=== PATIENT | male | born 1945 | race Caucasian/White ===

== ENCOUNTER 2017-03-17 23:27 | Inpatient (IN) | payer OTHER ==
--- NOTE | 2017-03-17 23:56 | PDOC ---
History of Present Illness - General History Source: Patient, Family Exam Limitations: No Limitations - History of Present Illness Initial Comments: 03/18/17 01:04 The patient is a 71 year old male, with a significant past medical history of hypercholesterolemia, who presents to the emergency room s/p a syncopal episode at a wedding. The patient reports he was standing at the wedding when he began to feel his left leg shaking and he syncopized and fell to the floor. The patient reports the syncopal episode was witnessed and he only lost consciousness for a moment. He reports that after the syncopal episode he had some water and felt better but states he noticed his left leg was still shaky. He denies hitting his head. He denies neck or back pain. He denies recent fever , chills, nausea or vomit. He denies recent chest pain or shortness of breath. Allergies: NKA PCP: Dr. Refugio De Jesus <Omar Chakraborty - Last Filed: 03/18/17 01:45> - General History Source: Patient, Family Exam Limitations: No Limitations <Serafin Trammell - Last Filed: 03/18/17 02:04> - General Chief Complaint: Syncope/Near Syncope Stated Complaint: SYNCOPE Time Seen by Provider: 03/17/17 23:47 Past History <Omar Chakraborty - Last Filed: 03/18/17 01:45> - Suicide/Smoking/Psychosocial Hx Smoking History: Unknown if ever smoked Have you smoked in the past 12 months: No Information on smoking cessation initiated: No Hx Alcohol Use: No Drug/Substance Use Hx: No <Serafin Trammell - Last Filed: 03/18/17 02:04> - Past Medical History Allergies/Adverse Reactions: Allergies Allergy/AdvReac Type Severity Reaction Status Date / Time No Known Allergies Allergy Verified 03/18/17 01:23 Review of Systems - Review of Systems Comments:: 03/18/17 01:04 GENERAL/CONSTITUTIONAL: +Syncopal episode. No fever or chills. HEAD, EYES, EARS, NOSE AND THROAT: No change in vision. No ear pain or discharge. No sore throat. CARDIOVASCULAR: No chest pain or shortness of breath. RESPIRATORY: No cough, wheezing, or hemoptysis. GASTROINTESTINAL: No nausea, vomiting, diarrhea or constipation. GENITOURINARY: No dysuria, frequency, or change in urination. MUSCULOSKELETAL: No joint or muscle swelling or pain. No neck or back pain. SKIN: No rash NEUROLOGIC: No headache, vertigo, loss of consciousness, or change in strength/ sensation. ENDOCRINE: No increased thirst. No abnormal weight change. HEMATOLOGIC/LYMPHATIC: No anemia, easy bleeding, or history of blood clots. ALLERGIC/IMMUNOLOGIC: No hives or skin allergy. <Omar Chakraborty - Last Filed: 03/18/17 01:45> *Physical Exam - Vital Signs Last Vital Signs Temp Pulse Resp BP Pulse Ox 98.7 F 71 18 155/100 92 L 03/17/17 23:43 03/17/17 23:43 03/17/17 23:43 03/17/17 23:43 03/17/17 23:43 - Physical Exam Comments: 03/18/17 01:45 GENERAL: Awake, alert, and fully oriented, in no acute distress HEAD: No signs of trauma EYES: PERRLA, EOMI, sclera anicteric, conjunctiva clear ENT: Auricles normal inspection, hearing grossly normal, nares patent, oropharynx clear without exudates. Moist mucosa NECK: Normal ROM, supple, no lymphadenopathy, JVD, or masses LUNGS: Breath sounds equal, clear to auscultation bilaterally. No wheezes, and no crackles HEART: Regular rate and rhythm, normal S1 and S2, no murmurs, rubs or gallops ABDOMEN: Soft, nontender, normoactive bowel sounds. No guarding, no rebound. No masses EXTREMITIES: Normal range of motion, no edema. No clubbing or cyanosis. No cords, erythema, or tenderness NEUROLOGICAL: 5/5 strength in upper and lower extremities. Sensation intact throughout. Finger to nose normal. Cranial nerves II through XII intact. Normal speech, normal gait SKIN: Warm, Dry, normal turgor, no rashes or lesions noted. <Omar Chakraborty - Last Filed: 03/18/17 01:45> - Vital Signs Last Vital Signs Temp Pulse Resp BP Pulse Ox 98.7 F 71 18 155/100 92 L 03/17/17 23:43 03/17/17 23:43 03/17/17 23:43 03/17/17 23:43 03/17/17 23:43 <Serafin Trammell - Last Filed: 03/18/17 02:04> Heart Score/ECG Review #1 ECG reviewed & interpreted by me at: 23:45 03/17/17 23:56 NSR 68 with PVCs in pattern of bigemy, no std/clem, QTC 452 msec, Q wave V1, no WPW, no brugada <Serafin Trammell - Last Filed: 03/18/17 02:04> ED Treatment Course - LABORATORY CBC & Chemistry Diagram: 03/18/17 00:14 03/18/17 00:14 - ADDITIONAL ORDERS Additional order review: Laboratory Results 03/18/17 03/18/17 00:14 00:14 PT with INR 11.40 INR 1.01 PTT (Actin FS) 33.4 Sodium 142 Potassium 4.3 Chloride 106 Carbon Dioxide 28 Anion Gap 8 BUN 24 H Creatinine 0.9 Creat Clearance w eGFR > 60 Random Glucose 133 H Calcium 8.6 Phosphorus 2.9 Magnesium 2.5 H Total Bilirubin 0.5 AST 23 ALT 33 Alkaline Phosphatase 100 Creatine Kinase 77 Troponin I 0.02 Total Protein 7.8 Albumin 3.8 03/18/17 00:14 RBC 5.05 MCV 90.1 MCHC 34.0 RDW 13.1 MPV 9.0 Neutrophils % 53.3 Lymphocytes % 31.3 Monocytes % 8.3 Eosinophils % 6.3 H Basophils % 0.8 <Omar Chakraborty - Last Filed: 03/18/17 01:45> - LABORATORY CBC & Chemistry Diagram: 03/18/17 00:14 03/18/17 00:14 <Serafin Trammell - Last Filed: 03/18/17 02:04> Medical Decision Making - Medical Decision Making 03/18/17 00:25 A portion of this note was documented by scribe services under my direction. I have reviewed the details of the note, within reason, and agree with the documentation with the following case summary and management plan written by me. Patient treated in the ED. Patient arrives by ambulance to the emergency department. Nursing notes are reviewed and incorporated into the medical decision-making. Vital signs reviewed. Peripheral IV access obtained by the nurse, laboratory studies are drawn and sent, reviewed and interpreted by myself. Vital Signs Temp Pulse Resp BP Pulse Ox 98.7 F 71 18 155/100 92 L 03/17/17 23:43 03/17/17 23:43 03/17/17 23:43 03/17/17 23:43 03/17/17 23:43 71-year-old male with past medical history of hyperlipidemia presents with syncope. The patient woke up in his usual state health and was at nondenominational for a wedding. He was praying when he suddenly felt his left leg shaking and subsequently syncopized. Never endorsing chest pain, short of breath or palpitations. Denies recent illnesses, fevers, chills, cough, vomiting, diarrhea. Patient has no neurological deficits and at this time I'm not concerned for neurological etiology such as TIA or stroke. However, patient's EKG does demonstrate his bigeminy which is concerning for cardiac etiology. We'll obtain a troponin, labs and place patient on cardiac telemetry. Patient ultimately to be admitted to the hospital for further evaluation. 03/18/17 01:44 CBC, BMP 03/18/17 00:14 03/18/17 00:14 CMP Sodium 142 mmol/L (136-145) 03/18/17 00:14 Potassium 4.3 mmol/L (3.5-5.1) 03/18/17 00:14 Chloride 106 mmol/L (98-107) 03/18/17 00:14 Carbon Dioxide 28 mmol/L (21-32) 03/18/17 00:14 Anion Gap 8 (8-16) 03/18/17 00:14 BUN 24 mg/dL (7-18) H 03/18/17 00:14 Creatinine 0.9 mg/dL (0.7-1.3) 03/18/17 00:14 Creat Clearance w eGFR > 60 (>60) 03/18/17 00:14 Random Glucose 133 mg/dL (74-106) H 03/18/17 00:14 Calcium 8.6 mg/dL (8.5-10.1) 03/18/17 00:14 Phosphorus 2.9 mg/dL (2.5-4.9) 03/18/17 00:14 Magnesium 2.5 mg/dL (1.8-2.4) H 03/18/17 00:14 Total Bilirubin 0.5 mg/dL (0.2-1.0) 03/18/17 00:14 AST 23 U/L (15-37) 03/18/17 00:14 ALT 33 U/L (12-78) 03/18/17 00:14 Alkaline Phosphatase 100 U/L (45-117) 03/18/17 00:14 Creatine Kinase 77 IU/L (39-308) 03/18/17 00:14 Troponin I 0.02 ng/ml (0.00-0.05) 03/18/17 00:14 Total Protein 7.8 g/dl (6.4-8.2) 03/18/17 00:14 Albumin 3.8 g/dl (3.4-5.0) 03/18/17 00:14 Troponin neative. 03/18/17 02:[address] De Jesus who accepts the patient to telemetry admission on the behalf for Dr. Rogelio Shannon. Requestes Dr. Godwin for cardiology consultation. Case discussed in detail with admitting physician including history, physical exam and ancillary studies. Admitting physician has assumed care for the patient, will follow all pending diagnostics and will complete the evaluation and treatment. <Serafin Trammell - Last Filed: 03/18/17 02:04> *DC/Admit/Observation/Transfer - Attestations Scribe Attestion: 03/18/17 01:05 Documentation prepared by Omar Chakraborty, acting as medical office assistant for Serafin Trammell MD. <Omar Chakraborty - Last Filed: 03/18/17 01:45> - Discharge Dispostion Admit: Yes <Serafin Trammell - Last Filed: 03/18/17 02:04> Diagnosis at time of Disposition: Abnormal EKG Syncope Qualifiers: Syncope type: unspecified Qualified Code(s): R55 - Syncope and collapse - Discharge Dispostion Condition at time of disposition: Stable - Referrals Referrals: Refugio De Jesus MD [Primary Care Provider] -
[2017-03-18 00:27] LABS: BASOPHIL 0.8 % (0-2.0); EOSINOPHIL 6.3 % (0-4.5); MCH 30.6 pg (25.7-33.7); MEAN CELL VOLUME 90.1 fl (80-96); NEUTROPHILS 53.3 % (42.8-82.8); PLATELET COUNT 159 K/MM3 (134-434); RDW 13.1 % (11.9-15.9); WHITE BLOOD COUNT 8.6 K/mm3 (4.0-10.0)
[2017-03-18 00:41] LABS: INR 1.01 (0.82-1.09); PROTHROMBIN TIME (PATIENT) 11.4 SEC (9.98-11.88)
[2017-03-18 00:44] LABS: ACTIVATED PTT 33.4 SECONDS (26.9-34.4)
[2017-03-18 00:50] LABS: ALBUMIN 3.8 g/dl (3.4-5.0); ANION GAP 8 (8-16); BILIRUBIN,TOTAL 0.5 mg/dL (0.2-1.0); CALCIUM 8.6 mg/dL (8.5-10.1); CO2 28 mmol/L (21-32); CPK 77 IU/L (39-308); CREATININE 0.9 mg/dL (0.7-1.3); GLUCOSE,RANDOM 133 mg/dL (74-106); MAGNESIUM 2.5 mg/dL (1.8-2.4); PHOSPHOROUS 2.9 mg/dL (2.5-4.9); SGOT/AST 23 U/L (15-37); SGPT/ALT 33 U/L (12-78); TOT PROT 7.8 g/dl (6.4-8.2)
[2017-03-18 00:52] LABS: ALK PHOS 100 U/L (45-117); TROPONIN I 0.02 ng/ml (0.00-0.05)
--- NOTE | 2017-03-18 08:00 | CON.CARD ---
Consult Consult Specialty:: cardio Referred by:: cindy (for esperanza) Reason for Consultation:: syncope - History of Present Illness Chief Complaint: same History of Present Illness: 71 yo male presented with syncope. flew from [place] (8 hrs) on 03/12 evening. has been feeling fine, at [employer] which is excellent--climbs multiple flights of stairs and walks ad dwayne never with any cp, sob, palpitations, dizzy/syncope. was at a wedding on [place]. had eaten lightly throughout the am and afternoon and not much fluids, but felt normal. at wedding he had very small amt (much less than 1/2 glass) of wine, ate large amt there. started noticing L leg trembling/shaking--went to try to lift the leg and passed out. no numbness in the leg, no neuro sx's in any other part of body. denies palpitations, cp, sob. no feeling of hot/cold wave or upset stomach at all. says he dropped to the floor and immediately (few seconds later) regained consciousness--no sz movements other than that leg shaking. no confusion post event. no vomiting/diarrhea/loss of bowel continence. THE LEG CONTINUED SHAKING FOR APPROX 1 HOUR. denies pains in calf/leg or swelling, or prior h/o VTEs. ekg with ventric bigeminy noted in ER PMH: HPL denies DM, HTN, CAD (had stress test in [place] 2 yrs ago or so, normal) FH: sudden in brother at 46 while asleep - Alcohol/Substance Use Hx Alcohol Use: No - Smoking History Smoking history: Unknown if ever smoked Have you smoked in the past 12 months: No Home Medications - Allergies Allergies/Adverse Reactions: Allergies Allergy/AdvReac Type Severity Reaction Status Date / Time No Known Allergies Allergy Verified 03/18/17 01:23 - Home Medications Home Medications: Ambulatory Orders Aspirin [ASA -] 81 mg PO DAILY 03/18/17 Rosuvastatin Calcium [Crestor] 5 mg PO HS 03/18/17 Review of Systems - Review of Systems Constitutional: denies: Chills, Fever Eyes: denies: Eye Pain HENT: denies: Nasal Congestion Neck: denies: Stiffness Cardiovascular: denies: Palpitations Respiratory: denies: Orthopnea, PND Gastrointestinal: denies: Diarrhea, Rectal Bleeding Genitourinary: denies: Burning, Hematuria Musculoskeletal: denies: Muscle Pain Integumentary: denies: Rash Neurological: denies: Change in Speech, Numbness, Parasthesia Endocrine: denies: Excessive Sweating Hematology/Lymphatic: denies: Excessive Bleeding Vital Signs: Vital Signs Temperature 98.7 F 03/18/17 06:25 Pulse Rate 72 03/18/17 06:25 Respiratory Rate 17 03/18/17 06:25 Blood Pressure 138/78 03/18/17 06:25 O2 Sat by Pulse Oximetry (%) 98 03/18/17 06:25 Constitutional: Yes: Well Nourished, No Distress Eyes: No: Sclera Icterus HENT: No: Nasal Congestion Neck: No: Decreased ROM Respiratory: Yes: CTA Bilaterally, Rales (faint rales/faint wz bases), Wheezes. No: Accessory Muscle Use Gastrointestinal: Yes: Normal Bowel Sounds. No: Distention, Hepatomegaly, Palpable Mass, Tenderness Cardiovascular: Yes: Regular Rate and Rhythm JVD: Yes Carotid Bruit: No PMI: Non-Displaced Heart Sounds: Yes: S1, S2. No: Gallop Murmur: No: Systolic Murmur, Diastolic Murmur Musculoskeletal: Yes: Other (No kyphosis) Extremities: Yes: Other (no induration/cord/tenderness of calves). No: Cold, Cyanosis Edema: No Peripheral Pulses: 2+ Left Carotid, 2+ Right Carotid, 2+ Left Doralis Pedis, 2+ Right Dorsalis Pedis Integumentary: No: Jaundice Neurological: Yes: Alert, Oriented (x3) Psychiatric: No: Agitated - Other Data Labs, Other Data: INR, PTT INR 1.01 (0.82-1.09) 03/18/17 00:14 Laboratory Tests 03/18/17 03/18/17 00:14 00:14 WBC 8.6 Hgb 15.5 Plt Count 159 Sodium 142 Potassium 4.3 Carbon Dioxide 28 BUN 24 H Creatinine 0.9 AST 23 ALT 33 Troponin I 0.02 Assessment/Plan EKG--NSR, ventricular bigeminy (monomorphic); normal axis; ? old ASMI (no prior) ; QT prob normal (difficult to measure in bigeimny--appears normal, 400s); no ST -T abns; no Brugada findings or findings suggestive of ARVD PVCs have left bundle/inferior axis morphology tele: NSR with freq monomorphic PVCs and freq runs of VT 3-4b duration CXR--congestive changes, cannot exclude early infiltrate; images reviewed: no effusions or vascular engorgement/redistribution; incr markings bases c/w nonspecific interstitial finding syncope: -suspicious type sx's with no prodrome other than brief shaking of LLE which persisted for about an hour after regained consciousness -? sz vs CVA -marked JVD on exam (8-10cm) with ? mild interstitial edema on CXR in pt with no prior h/o chf sx's or cv dz--? acute event with RV strain; frequency pvc's/ NSVT emanating from RV (negative QRS in V1) -check CTA to r/o PE with atyp presentation (flew 8 hrs flight 4 days prior to event) -check echo in AM -trop x1 normal, second ordered (pending) chf: -cxr nonspecific incr interstitial markings at bases on my review, ? interstitial edema (acute) -signif JVD on exam, as above -soft heart sounds with soft murmur--r/o signif -check bnp -check echo -defer lasix as he is asymptomatic VTach: -freq PVCs with morphology c/w RVOT/LVOT site of origin -suspicious syncope, as above -K and Mag good, no prolonged QT on ekg, no other findings of channelopathy/ cardiomyopathy -presentation (sudden syncope with minimal prodrome) not typical of outflow tract VT -r/o PE with RV strain (CTA)...no RBBB or epsilon wave findings to suggest ARVD -check echo -if echo with normal LV and RV, will d/w EP re: cath (vs inpt mpi), ? EPS (vs outpt monitor)
--- NOTE | 2017-03-18 09:05 | EKG ---
Test Reason : Blood Pressure : / mmHG Vent. Rate : 068 BPM Atrial Rate : 068 BPM P-R Int : 160 ms QRS Dur : 082 ms QT Int : 426 ms P-R-T Axes : 021 054 078 degrees QTc Int : 452 ms SINUS RHYTHM WITH FREQUENT PREMATURE VENTRICULAR COMPLEXES IN A PATTERN OF BIGEMINY ANTERIOR INFARCT , AGE UNDETERMINED ABNORMAL ECG NO PREVIOUS ECGS AVAILABLE Confirmed by BYRON PARRISH, KYLAH ([id number]) on 03/18/2017 9:05:41 AM Referred By: Confirmed By:KYLAH MATTHEWS MD
[2017-03-18] MEDS ORDERED: ACETAMINOPHEN 325 MG TABLET (FP) PO PRN (10:35)
[2017-03-18 10:38] LABS: TROPONIN I 0.02 ng/ml (0.00-0.05)
[2017-03-18] MEDS ORDERED: ENOXAPARIN NA (PORCINE) 40 MG/0.4 ML DISP.SYRIN SQ ONE (11:15)
[2017-03-18] MEDS ORDERED: ASPIRIN COATED 81 MG TABLET.EC ONE (11:15)
[2017-03-18] MEDS: ASPIRIN 81 MG CHEWABLE TABLETS PO SCH (11:20)
[2017-03-18] MEDS: ENOXAPARIN NA (PORCINE) 40 MG/0.4 ML DISP.SYRIN SQ SCH (11:20)
[2017-03-18 14:48] VITALS: BMI 25.5
--- NOTE | 2017-03-18 15:41 | HP ---
Admitting History and Physical - Primary Care Physician PCP: Refugio De Jesus - Admission History of Present Illness: The patient is a 71 year old male, with a significant past medical history of hypercholesterolemia, who presents to the emergency room s/p a syncopal episode at a wedding. The patient reports he was standing at the wedding when he began to feel his left leg shaking and he syncopized and fell to the floor. The patient reports the syncopal episode was witnessed and he only lost consciousness for a moment. He reports that after the syncopal episode he had some water and felt better but states he noticed his left leg was still shaky. He denies hitting his head. He denies neck or back pain. He denies recent fever , chills, nausea or vomit. He denies recent chest pain or shortness of breath. pt being admitted to tele as ekg-- showed pvcs pt seen/ examined by me in er- chart reviewed family at bedside. at present comfortable denies cp/sob. no abd pain. no headche/ dizziness denies u/b trouble History Source: Patient, Family Member Limitations to Obtaining History: No Limitations - Smoking History Smoking history: Unknown if ever smoked Have you smoked in the past 12 months: No - Alcohol/Substance Use Hx Alcohol Use: No Home Medications - Allergies Allergies/Adverse Reactions: Allergies Allergy/AdvReac Type Severity Reaction Status Date / Time No Known Allergies Allergy Verified 03/18/17 01:23 - Home Medications Home Medications: Ambulatory Orders Aspirin [ASA -] 81 mg PO DAILY 03/18/17 Rosuvastatin Calcium [Crestor] 5 mg PO HS 03/18/17 Review of Systems Findings/Remarks: see [place] Physical Examination Vital Signs: Vital Signs Temperature 98.7 F 03/18/17 06:25 Pulse Rate 82 03/18/17 14:15 Respiratory Rate 18 03/18/17 14:15 Blood Pressure 121/82 03/18/17 14:15 O2 Sat by Pulse Oximetry (%) 92 L 03/18/17 14:15 Constitutional: Yes: No Distress, Calm Eyes: Yes: WNL HENT: Yes: WNL Neck: Yes: Supple, Trachea Midline Cardiovascular: Yes: Regular Rate and Rhythm Respiratory: Yes: CTA Bilaterally Gastrointestinal: Yes: Normal Bowel Sounds, Soft Edema: No Neurological: Yes: WNL, Alert, Cran Nerves II-XII Intact Psychiatric: Yes: Alert Imaging - Results Chest X-ray: Report Reviewed Cat Scan: Report Reviewed EKG: Report Reviewed Problem List - Problems (1) Syncope Assessment/Plan: monitor on tele neuro eval carotid ok Code(s): R55 - SYNCOPE AND COLLAPSE Qualifiers: Syncope type: unspecified Qualified Code(s): R55 - Syncope and collapse ; R55 - Syncope and collapse (2) Abnormal EKG Assessment/Plan: monitor tele. cardiology on case. Code(s): R94.31 - ABNORMAL ELECTROCARDIOGRAM [ECG] [EKG] (3) Hyperlipemia Code(s): E78.5 - HYPERLIPIDEMIA, UNSPECIFIED Assessment/Plan dvt prophylaxis discussed with pt/ family, will follow.
[2017-03-18] MEDS ORDERED: ROSUVASTATIN CA 5 MG TABLET (FP) PO SCH (22:00)
[2017-03-19 06:59] LABS: BASOPHIL 0.5 % (0-2.0); EOSINOPHIL 6.7 % (0-4.5); MCH 30.6 pg (25.7-33.7); MEAN CELL VOLUME 90.1 fl (80-96); MEAN PLT VOLUME 9.4 fl (7.5-11.1); NEUTROPHILS 42.1 % (42.8-82.8); PLATELET COUNT 148 K/MM3 (134-434); RDW 13.2 % (11.9-15.9); WHITE BLOOD COUNT 7.8 K/mm3 (4.0-10.0)
[2017-03-19 07:13] LABS: ALBUMIN 3.6 g/dl (3.4-5.0); ALK PHOS 93 U/L (45-117); ANION GAP 7 (8-16); BILIRUBIN,TOTAL 1.2 mg/dL (0.2-1.0); CALCIUM 8.5 mg/dL (8.5-10.1); CHOLESTEROL 137 mg/dL (50-200); CO2 27 mmol/L (21-32); CREATININE 0.9 mg/dL (0.7-1.3); GLUCOSE,RANDOM 101 mg/dL (74-106); SGOT/AST 21 U/L (15-37); SGPT/ALT 23 U/L (12-78); TOT PROT 7.2 g/dl (6.4-8.2)
[2017-03-19] MEDS ORDERED: PT OWN MED DRAWER 7, Y5N ONE (09:24)
[2017-03-19] MEDS: ENOXAPARIN NA (PORCINE) 40 MG/0.4 ML DISP.SYRIN SQ SCH (09:33)
[2017-03-19] MEDS: ASPIRIN 81 MG CHEWABLE TABLETS PO SCH (09:33)
--- NOTE | 2017-03-19 11:43 | PN ---
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 his LLE was shaking uncontrollably; he lifted the leg to try to shake it out and stop it. then he put it back down and when he tried to lift the R leg and support himself fully on the left leg, he fell to floor no dizzy, cp, sob, palp +cigs - Current Medication List Current Medications: Active Medications Acetaminophen (Tylenol -) 650 mg PO Q6H PRN PRN Reason: FEVER OR PAIN Aspirin (Asa -) 81 mg PO DAILY [facility] Last Admin: 03/19/17 09:33 Dose: 81 mg Enoxaparin Sodium (Lovenox -) 40 mg SQ DAILY [facility] Last Admin: 03/19/17 09:33 Dose: 40 mg Rosuvastatin Calcium (Crestor -) 5 mg PO HS [facility] Last Admin: 03/18/17 23:45 Dose: 5 mg - Objective Vital Signs: Vital Signs Temperature 97.8 F 03/19/17 02:00 Pulse Rate 60 03/19/17 02:00 Respiratory Rate 18 03/19/17 02:00 Blood Pressure 129/56 03/19/17 02:00 O2 Sat by Pulse Oximetry (%) 95 03/18/17 21:00 Constitutional: Yes: No Distress, Calm Eyes: No: Sclera Icterus HENT: No: Nasal Congestion Cardiovascular: Yes: Regular Rate and Rhythm, JVD (10 cm), S1, S2, Other (PMI non diplaced). No: Gallop, Murmur Respiratory: Yes: CTA Bilaterally. No: Accessory Muscle Use, Rales, Wheezes Gastrointestinal: Yes: Normal Bowel Sounds, Soft. No: Tenderness Musculoskeletal: Yes: Other (No kyphosis) Extremities: No: Cold Edema: No Integumentary: No: Jaundice Neurological: Yes: Alert, Oriented (x3) Psychiatric: No: Agitated Labs: CBC, BMP 03/19/17 06:10 03/19/17 06:10 INR, PTT INR 1.01 (0.82-1.09) 03/18/17 00:14 - ....Imaging EKG: Other (tele: NSR; freq PVCs; few runs NSVT (3 b)) Assessment/Plan EKG--NSR, ventricular bigeminy (monomorphic); normal axis; ? old ASMI (no prior) ; QT prob normal (difficult to measure in bigeimny--appears normal, 400s); no ST -T abns; no Brugada findings or findings suggestive of ARVD PVCs have left bundle/inferior axis morphology tele: NSR with freq monomorphic PVCs and freq runs of VT 3-4b duration CXR--congestive changes, cannot exclude early infiltrate; images reviewed: no effusions or vascular engorgement/redistribution; incr markings bases c/w nonspecific interstitial finding NOTE: SEE HPI--THERE WAS NO H/O PRESYNCOPE OR SYNCOPE (PT AND CLARIFY HX TODAY) LLE tremoring (x 1 hr) and weakness with resultant mechanical fall: -? sz vs CVA--await neuro eval -CT head no acute path -marked JVD on exam (8-10cm)--CTA neg for PE; echo pending -trop x 2 neg--sx's not c/w ACS -carotids no stenosis (mild plaque) chf, unknown type: -cxr nonspecific incr interstitial markings at bases on my review, ? interstitial edema (acute) -signif JVD on exam -BNP 600s (+/-) -no sx's -soft heart sounds with soft murmur--r/o signif -check bnp -check echo -defer lasix as he is asymptomatic VTach: -freq PVCs with morphology c/w RVOT/LVOT site of origin -NO SX'S (hx clarified with pt/)--was mechanical fall -K and Mag good, no prolonged QT on ekg, no other findings of channelopathy/ cardiomyopathy -check echo -if echo with normal LV and RV, then this pt is ASYMPTOMATIC and would not have indication for possible VT ablation unless develops sx's (or sustained ventric arrhythmia) in future -will start BB here (also to minimize PVC burden and future risk of pvc-assctd cmp) renal cyst: -R upper pole cyst ? partially exophytic -f/u per pmd
--- NOTE | 2017-03-19 12:26 | CON.NEURO ---
Consult - History of Present Illness History of Present Illness: 71 year old male , history of HLD, came to hospital for possible syncope.Patient was in wedding, drove long hours and was standing and felt some funny thing in left leg and possible shakiness, and fell to floor. There was no shaking activity, no tongue bite or incontinence. He denies any headhace, dysphagia , dysarthria or diplopia. Patient was no post ictal. CT scan of head was normal and carotid ultrasound is normal denies any stroke seizures in past,He denies any smoking in past - Alcohol/Substance Use Hx Alcohol Use: No - Smoking History Smoking history: Unknown if ever smoked Have you smoked in the past 12 months: No Aproximately how many cigarettes per day: 15 Home Medications - Allergies Allergies/Adverse Reactions: Allergies Allergy/AdvReac Type Severity Reaction Status Date / Time No Known Allergies Allergy Verified 03/18/17 01:23 - Home Medications Home Medications: Ambulatory Orders Aspirin [ASA -] 81 mg PO DAILY 03/18/17 Rosuvastatin Calcium [Crestor] 5 mg PO HS 03/18/17 Physical Exam-Neuro Vital Signs: Vital Signs Temperature 98.2 F 03/19/17 10:00 Pulse Rate 60 03/19/17 10:00 Respiratory Rate 22 03/19/17 10:00 Blood Pressure 152/74 03/19/17 10:00 O2 Sat by Pulse Oximetry (%) 96 03/19/17 09:00 Labs: CBC, BMP 03/19/17 06:10 03/19/17 06:10 INR, PTT INR 1.01 (0.82-1.09) 03/18/17 00:14 Imaging - Results Cat Scan: Report Reviewed Assessment/Plan cc Episode of syncope HPI 71 year old male , history of HLD, came to hospital for possible syncope.Patient was in wedding, drove long hours and was standing and felt some funny thing in left leg and possible shakiness, and fell to floor. There was no shaking activity, no tongue bite or incontinence. He denies any headhace, dysphagia , dysarthria or diplopia. Patient was no post ictal. CT scan of head was normal and carotid ultrasound is normal denies any stroke seizures in past,He denies any smoking in past Home Medication Aspirin [ASA -] 81 mg PO DAILY 10/29/17 Rosuvastatin Calcium [Crestor] 5 mg PO HS 03/18/17 ROS reviewed in chart Neurological Examination Alert oriented x 3 CN all intact, eomi, pupils is reactive no face asymmetry motor 5/5 all extremity sensation is normal gait and coordination is normal ct head is unremarkable carotid ultraosound no stenosis Assessment- Most likley syncope, unlikely to be seizures. Plan so far work up has been negative, no need for mri at this time, eeg can be done as outpatient He was given my no and would see him outpatient He is clear to go home from neurological point of view Thank you so much Shirley Black MD
[2017-03-19] MEDS ORDERED: METOPROLOL SUCCINATE 50 MG TAB.SR.24H (FP) PO SCH (12:30)
--- NOTE | 2017-03-19 14:28 | PN ---
Progress Note (short form) - Note Progress Note: patient seen and examined earlier this morning today Feels much better No complaints Denies chest pain or shortness of breath or abdominal pain Denies headache or dizziness Vital Signs Temp 98.2 F 03/19/17 10:00 Pulse 60 03/19/17 10:00 Resp 22 03/19/17 10:00 BP 152/74 03/19/17 10:00 Pulse Ox 96 03/19/17 09:00 Intake & Output 03/18/17 03/19/17 03/19/17 23:59 11:59 23:59 Intake Total 10 300 Balance 10 300 Weight 168 lb Intake: IVPB 10 Oral 300 Other: Voiding Method Toilet Toilet Height 5 ft 8 in Body Mass Index (BMI) 25.5 Weight Measurement Method Stated by Patient Active Medications Acetaminophen (Tylenol -) 650 mg PO Q6H PRN PRN Reason: FEVER OR PAIN Aspirin (Asa -) 81 mg PO DAILY [facility] Last Admin: 03/19/17 09:33 Dose: 81 mg Enoxaparin Sodium (Lovenox -) 40 mg SQ DAILY [facility] Last Admin: 03/19/17 09:33 Dose: 40 mg Metoprolol Succinate (Toprol Xl -) 50 mg PO DAILY [facility] Last Admin: 03/19/17 14:03 Dose: 50 mg Rosuvastatin Calcium (Crestor -) 5 mg PO HS [facility] Last Admin: 03/18/17 23:45 Dose: 5 mg CBC, BMP 03/19/17 06:10 03/19/17 06:10 Physical Examination Constitutional: Yes: No Distress, Calm Eyes: Yes: WNL HENT: Yes: WNL Neck: Yes: Supple, Trachea Midline Cardiovascular: Yes: Regular Rate and Rhythm Respiratory: Yes: CTA Bilaterally Gastrointestinal: Yes: Normal Bowel Sounds, Soft Edema: No Neurological: Yes: WNL, Alert, Cran Nerves II-XII Intact Psychiatric: Yes: Alert Imaging - Results Chest X-ray: Report Reviewed Cat Scan: Report Reviewed EKG: Report Reviewed Problem List - Problems (1) Syncope Assessment/Plan: monitor on tele neuro eval carotid ok Code(s): R55 - SYNCOPE AND COLLAPSE Qualifiers: Syncope type: unspecified Qualified Code(s): R55 - Syncope and collapse ; R55 - Syncope and collapse (2) Abnormal EKG Assessment/Plan: monitor tele. cardiology on case. Code(s): R94.31 - ABNORMAL ELECTROCARDIOGRAM [ECG] [EKG] (3) Hyperlipemia Code(s): E78.5 - HYPERLIPIDEMIA, UNSPECIFIED Assessment/Plan clinically stable likely vasovagal syncope Patient advised to drink fluids Neurology consultation noted/appreciated I had discussed with commercial relief driver today--- echo to be done today If cleared by cardiology after that--discharge Discussed with patient and patient's family Will follow Problem List - Problems (1) Syncope Code(s): R55 - SYNCOPE AND COLLAPSE Qualifiers: Syncope type: unspecified Qualified Code(s): R55 - Syncope and collapse ; R55 - Syncope and collapse (2) Abnormal EKG Code(s): R94.31 - ABNORMAL ELECTROCARDIOGRAM [ECG] [EKG] (3) Hyperlipemia Code(s): E78.5 - HYPERLIPIDEMIA, UNSPECIFIED
[2017-03-19 14:32] VITALS: BP 158/80; PULSE 88; TEMP 98.1
--- NOTE | 2017-03-19 20:16 | DS ---
Physical Examination Vital Signs: Vital Signs Temperature 98.1 F 03/19/17 14:31 Pulse Rate 88 03/19/17 14:31 Respiratory Rate 18 03/19/17 14:31 Blood Pressure 158/80 03/19/17 14:31 O2 Sat by Pulse Oximetry (%) 96 03/19/17 09:00 Findings/Remarks: see today progress note Labs: CBC, BMP 03/19/17 06:10 03/19/17 06:10 Discharge Summary Reason For Visit: SYNCOPE,ABDORMAL EKG Hospital Course: The patient is a 71 year old male, with a significant past medical history of hypercholesterolemia, who presents to the emergency room s/p a syncopal episode at a wedding. pt admitted to tele as ekg shows arythmia- [facility] neuro/ cardiology followed work up all -ve pe ruled out echo ok d/c home today pt to follow with his pmd in a week discussed with nursing staff. Condition: Stable - Instructions Referrals: Sky Black MD [Staff Physician] - Christian Godwin MD [Staff Physician] - Refugio De Jesus MD [Primary Care Provider] - Disposition: HOME - Home Medications Comprehensive Discharge Medication List: Ambulatory Orders Aspirin [ASA -] 81 mg PO DAILY 03/18/17 Rosuvastatin Calcium [Crestor] 5 mg PO HS 03/18/17
== END 2017-03-19 19:42 | disposition home or self-care (01) | DRG 310 ==
LOC: JER 23:27 → JERBED 03-18 02:04 → UNDOADMIN 03-18 02:38 → J4W 03-18 15:41
PROVIDERS: ADMIT Internal Medicine; ATTEND Internal Medicine
DX: I47.2 Ventricular tachycardia (principal); E78.00 Pure hypercholesterolemia, unspecified; I49.3 Ventricular premature depolarization; R55 Syncope and collapse; R94.31 Abnormal electrocardiogram [ECG] [EKG]; N28.1 Cyst of kidney, acquired; I50.9 Heart failure, unspecified
CPT/HCPCS: 36415; 70450-TC; 71010-TC; 71275-TC; 76775-TC; 80053; 80061; 82550; 83721; 83735; 83880; 84100; 84484; 85025; 85610; 85730; 93005; 93010; 93306-TC; 93880-TC; 99285-25